=== PATIENT | male | born 2000 | race Caucasian/White ===

== ENCOUNTER 2021-09-14 23:10 | Emergency (ER) | payer BC, OTHER ==
--- NOTE | 2021-09-15 00:06 | ED ---
Psych HPI - General Source: patient, RN notes reviewed Mode of arrival: ambulatory <Alex Russ - Last Filed: 09/15/21 03:17> <Nj Mccrary - Last Filed: 09/15/21 07:46> - General Chief Complaint: Psychiatric Symptoms Stated Complaint: Mental health Time Seen by Provider: 09/14/21 23:47 - History of Present Illness Initial Comments: No headache, no fever or chills, no changes in vision or hearing, no sore throat or difficulty with speech, no neck pain, no chest pain or shortness of breath, no abdominal pain, no nausea or vomiting, no changes in urination or bowel movements, no numbness or tingling, no extremity pain, no skin rashes or lesions. (Alex Russ) 21-year-old male reportedly presented emergency department tonight with chief complaint of depression, alcohol intoxication. Patient stated that he felt suicidal. No plan to harm himself. Denies any illicit drug use. Patient offers no physical complaints. (Nj Mccrary) - Related Data Home Medications Medication Instructions Recorded Confirmed Albuterol Inhaler [Ventolin Hfa 2 puff INHALATION RT-QID PRN 09/15/21 09/15/21 Inhaler] Venlafaxine HCl [Effexor XR] 75 mg PO DAILY 09/15/21 09/15/21 traZODone HCL [Desyrel] 50 mg PO HS PRN 09/15/21 09/15/21 Allergies Allergy/AdvReac Type Severity Reaction Status Date / Time No Known Allergies Allergy Verified 09/15/21 07:31 Review of Systems ROS Other: All systems not noted in ROS Statement are negative. <Alex Russ - Last Filed: 09/15/21 03:17> ROS Other: All systems not noted in ROS Statement are negative. <Nj Mccrary - Last Filed: 09/15/21 07:46> ROS Statement: Those systems with pertinent positive or pertinent negative responses have been documented in the HPI. Past Medical History Past Medical History: No Reported History History of Any Multi-Drug Resistant Organisms: None Reported Past Surgical History: Tonsillectomy Past Psychological History: Depression Smoking Status: Vaper Past Alcohol Use History: Occasional Past Drug Use History: Marijuana <Alex Russ - Last Filed: 09/15/21 03:17> General Exam Limitations: no limitations General appearance: alert, in no apparent distress Head exam: Present: atraumatic, normocephalic, normal inspection Eye exam: Present: normal appearance, PERRL, EOMI. Absent: scleral icterus, conjunctival injection, periorbital swelling ENT exam: Present: normal exam, normal oropharynx, mucous membranes moist, TM's normal bilaterally, normal external ear exam. Absent: mucous membranes dry Neck exam: Present: normal inspection, full ROM. Absent: tenderness, meningismus, lymphadenopathy Respiratory exam: Present: normal lung sounds bilaterally. Absent: respiratory distress, wheezes, rales, rhonchi, stridor, chest wall tenderness, accessory muscle use, decreased breath sounds, prolonged expiratory Cardiovascular Exam: Present: regular rate, normal rhythm, normal heart sounds. Absent: systolic murmur, diastolic murmur, rubs, gallop, clicks GI/Abdominal exam: Present: soft, normal bowel sounds. Absent: distended, tenderness, guarding, rebound, rigid Extremities exam: Present: normal inspection, full ROM, normal capillary refill. Absent: tenderness, pedal edema, joint swelling, calf tenderness Back exam: Present: normal inspection Neurological exam: Present: alert, oriented X3, CN II-XII intact, normal gait. Absent: altered, abnormal gait, motor sensory deficit Psychiatric exam: Present: normal affect, normal mood, other (Patient appears to be appropriate at this time). Absent: depressed, agitated, anxious, flat affect, suicidal ideation Skin exam: Present: warm, dry, intact, normal color. Absent: rash, cyanosis, diaphoretic, erythema, urticaria <Alex Russ - Last Filed: 09/15/21 03:17> - General Exam Comments Initial Comments: Cranial nerves II through XII intact. Patient does not appear to be ill or toxic. (Alex Russ) Course Vital Signs 09/14/21 09/15/21 23:34 06:41 Temperature 98 F Pulse Rate 99 95 Respiratory 16 18 Rate Blood Pressure 127/80 138/97 O2 Sat by Pulse 97 97 Oximetry Medical Decision Making <Alex Russ - Last Filed: 09/15/21 03:17> <Nj Mccrary - Last Filed: 09/15/21 07:46> - Medical Decision Making Patient alcohol level is 0.19. Apparently the patient's friend came back and certified the patient. Patient was reported to the ED attending physician at 3:18 AM. (Alex Russ) Patient was evaluated by EPS upon patient being sober. Patient states is not suicidal. Patient was cleared by EPS, psychiatrist. Patient discharged with safety plan. (Nj Mccrary) Disposition <Alex Russ - Last Filed: 09/15/21 03:17> Is patient prescribed a controlled substance at d/c from ED?: No Time of Disposition: 07:45 <Nj Mccrary - Last Filed: 09/15/21 07:46> Clinical Impression: Alcohol intoxication, Depression Disposition: HOME SELF-CARE Condition: Stable Instructions (If sedation given, give patient instructions): Depression (ED) Additional Instructions: Please return to the Emergency Department if symptoms worsen or any other concerns. Referrals: Isra Pandey MD [Primary Care Provider] - 1-2 days
[2021-09-15 06:42] VITALS: RESP 18
[2021-09-15 08:43] VITALS: BP 130/88; PULSE 89; TEMP 98.1
== END 2021-09-15 08:11 | disposition home or self-care (01) ==
LOC: EC 23:10
DX: F32.A Depression, unspecified (principal); F10.129 Alcohol abuse with intoxication, unspecified; F17.209 Nicotine dependence, unspecified, with unspecified nicotine-induced disorders
CPT/HCPCS: 82075

== ENCOUNTER 2024-08-10 00:06 | Inpatient (IN) | payer BC, MEDICAID ==
[2024-08-10] MEDS: LORazepam 1 MG TAB PO STA ×2 (05:27→07:17)
--- NOTE | 2024-08-10 07:36 | ED ---
General Adult HPI - General Chief complaint: Psychiatric Symptoms Stated complaint: Petition Time Seen by Provider: 08/10/24 00:22 Source: patient Mode of arrival: ambulatory Limitations: no limitations - History of Present Illness Initial comments: Patient is a 24-year-old male with a past medical history of bipolar disorder presenting on petition for self-harming behaviors and suicidal statements. Patient denies suicidal ideation to myself. He states that his dad went on a trip for a week and did not take him and he was feeling bad about himself. Patient states that he does not like himself. He cuts superficially and does not know why. He endorses associated alcohol use. Does not have a plan for suicide. Does have access to knives and his father's gun at home. Has had history of prior suicide attempts. Denies drug use. Does take his medications as prescribed. Denies thoughts of wanting to harm or kill others. Denies auditory or visual hallucinations. Endorses difficulty sleeping. Denies additional complaints. - Related Data Home Medications Medication Instructions Recorded Confirmed Albuterol Inhaler [Ventolin Hfa 2 puff INHALATION RT-QID PRN 09/15/21 09/15/21 Inhaler] Venlafaxine HCl [Effexor XR] 75 mg PO DAILY 09/15/21 09/15/21 traZODone HCL [Desyrel] 50 mg PO HS PRN 09/15/21 09/15/21 Allergies Allergy/AdvReac Type Severity Reaction Status Date / Time No Known Allergies Allergy Verified 08/10/24 00:16 Review of Systems ROS Statement: Those systems with pertinent positive or pertinent negative responses have been documented in the HPI. ROS Other: All systems not noted in ROS Statement are negative. Past Medical History Past Medical History: Asthma History of Any Multi-Drug Resistant Organisms: None Reported Past Surgical History: Tonsillectomy Past Psychological History: Anxiety, Bipolar, Depression Smoking Status: Vaper Past Alcohol Use History: Daily Past Drug Use History: Marijuana General Exam - General Exam Comments Initial Comments: Visual Physical Exam Vital signs reviewed General: Well-appearing, nontoxic, no acute distress. Head: Normocephalic, atraumatic Eyes: PERRLA, EOMI ENT: Airway patent Chest: Nonlabored breathing Skin: No visual rash, normal skin tone, multiple superficial linear abrasions to patient's forearms bilaterally Neuro: Alert and oriented 3 Musculoskeletal: No gross abnormalities Psychiatric: Makes poor eye contact, initially angry affect but then calm and cooperative, denies SI, does not appear to be responding to internal stimuli Limitations: no limitations Course Vital Signs 08/10/24 08/10/24 08/10/24 00:09 05:10 07:25 Temperature 98.3 F Pulse Rate 124 H 110 H Respiratory 18 16 16 Rate Blood Pressure 164/129 159/113 O2 Sat by Pulse 94 L 97 Oximetry Medical Decision Making - Medical Decision Making Was pt. sent in by a medical professional or institution (, PA, LICENSED PESTICIDE APPLICATOR, urgent care, hospital, or group home...) When possible be specific @ -No Did you speak to anyone other than the patient for history (EMS, parent, family, police, friend...)? What history was obtained from this source @ -No Did you review nursing and triage notes (agree or disagree)? Why? @ -I reviewed and agree with nursing and triage notes Were old charts reviewed (outside hosp., previous admission, EMS record, old EKG, old radiological studies, urgent care reports/EKG's, group home records)? Report findings @ -Medical records reviewed-petition for living with patient, filled out by patient's father, it states that patient made suicidal comments, was threatening to harm his sister Differential Diagnosis (chest pain, altered mental status, abdominal pain women, abdominal pain men, vaginal bleeding, weakness, fever, dyspnea, syncope, headache, dizziness, GI bleed, back pain, seizure, CVA, palpatations, mental health, musculoskeletal)? @ -Differential Mental Health Depression, anxiety, bipolar, psychosis, schizophrenia, borderline personality, situational depression, adjustment disorder, behavioral disorder, brain tumor, malingering, substance abuse, encephalopathy, medication reaction, dementia, hypothyroidism, degenerative neurologic disorder, lupus.... This is not meant to be all-inclusive list EKG interpreted by me (3pts min.). @ -As above X-rays interpreted by me (1pt min.). @ -None done CT interpreted by me (1pt min.). @ -None done U/S interpreted by me (1pt. min.). @ -None done What testing was considered but not performed or refused? (CT, X-rays, U/S, labs)? Why? @ -Basic labs were considered however patient has history of bipolar disorder and similar episodes, this is not new issue for the patient What meds were considered but not given or refused? Why? @Antihypertensives were considered however patient is asymptomatic for hypertensive emergency, denying chest pain or shortness of breath, suspect blood pressure may be secondary to anxiety/agitation from having to be in the emergency department and petitioned Did you discuss the management of the patient with other professionals (professionals i.e. Dr., PA, LICENSED PESTICIDE APPLICATOR, lab, RT, psych nurse, social science analyst, chief arson division, teacher, special loan officer, rn case management)? Give summary @Case discussed with EPS RN, Mahad, kindly evaluated pt, recommends inpatient psychiatric admission, pt voluntarily signed himself in Was smoking cessation discussed for >3mins.? @ -No Was critical care preformed (if so, how long)? @ -No Were there social determinants of health that impacted care today? How? (Homelessness, low income, unemployed, alcoholism, drug addiction, transportation, low edu. Level, literacy, decrease access to med. care, half-way, rehab)? @ -No Was there de-escalation of care discussed even if they declined (Discuss DNR or withdrawal of care, Hospice)? @ -No What co-morbidities impacted this encounter? (DM, HTN, Smoking, COPD, CAD, C ancer, CVA, ARF, Chemo, Hep., AIDS, mental health diagnosis, sleep apnea, morbid obesity)? @ -Bipolar does Was patient admitted / discharged? Hospital course, mention meds given and route, prescriptions, significant lab abnormalities, going to OR and other pertinent info. Admission to psychiatric floor-this is a 24-year-old male presenting today for suicidal statements. On my assessment patient is resting comfortably no acute distress. He initially is angry and has an angry affect however ultimately is calm and cooperative. Blood alcohol on breathalyzer is 0.144. Patient medically cleared for EPS at 4:30 AM. He was evaluated by EPS RN and ultimately recommended for inpatient psychiatric hospitalization. Patient voluntarily signed himself in. Admitted to psychiatric floor in stable condition. Undiagnosed new problem with uncertain prognosis? @ -No Drug Therapy requiring intensive monitoring for toxicity (Heparin, Nitro, Insulin, Cardizem)? @ -No Were any procedures done? @ -No Diagnosis/symptom? @ SI, asymptomatic hypertension Acute, or Chronic, or Acute on Chronic? @ -acute Uncomplicated (without systemic symptoms) or Complicated (systemic symptoms)? @ uncomplicated Side effects of treatment? @ -No Exacerbation, Progression, or Severe Exacerbation? @ -No Poses a threat to life or bodily function? How? (Chest pain, [place], [place], pneumonia, PE, COPD, DKA, ARF, appy, cholecystitis, CVA, Diverticulitis, Homicidal, Suicidal, threat to staff... and all critical care pts) @ Potentially, if intent behind suicidal ideation and completed, would result in - Lab Data Lab Results 08/10/24 Range/Units 07:15 SARS-CoV-2 (PCR) Not Detected (Not Detectd) Disposition Clinical Impression: Suicidal ideation, Asymptomatic hypertension Disposition: TRANSFER TO PSYCH HOSP/UNIT Condition: Stable Referrals: Isra Pandey MD [Primary Care Provider] - 1-2 days
[2024-08-10] MEDS: cloNIDine HCL 0.1 MG TAB PO STA (13:32)
[2024-08-10] MEDS: LORazepam 2 MG/ML INJ IM STA (13:33)
[2024-08-10] MEDS ORDERED: LORazepam 2 MG/ML INJ IM PRN (17:03)
[2024-08-10] MEDS ORDERED: LORazepam 1 MG TAB PO PRN ×3 (17:03)
[2024-08-10] MEDS ORDERED: IBUPROFEN 600 MG TAB PO PRN (17:03)
[2024-08-10] MEDS ORDERED: HALOPERIDOL LACTATE 5 MG/ML 1 ML VIAL IM PRN (17:03)
[2024-08-10] MEDS ORDERED: MAGNESIUM HYDROXIDE 2,400 MG/30 ML CUP PO PRN (17:03)
[2024-08-10] MEDS ORDERED: ACETAMINOPHEN TAB 325 MG TAB PO PRN (17:03)
[2024-08-10] MEDS ORDERED: MAG HYDROX/AL HYDROX/SIMETH 355 ML BOTTLE PO PRN (17:03)
[2024-08-10] MEDS ORDERED: ALBUTEROL INHALER 60 PUFF/8 GM INHALER (MHU) INHALATION PRN (17:07)
[2024-08-10] MEDS ORDERED: traZODone HCL 100 MG TAB PO PRN (17:07)
[2024-08-10] MEDS: METOPROLOL TARTRATE 50 MG TAB PO STA (20:41)
[2024-08-10] MEDS: cloNIDine 0.3 MG/24HR PATCH TRANSDERM STA (20:41)
[2024-08-11 00:46] LABS: Basophils # (A) 0.05 10*3/uL (0.00-0.10); Basophils % (A) 0.5 %; Eosinophils # (A) 0.08 10*3/uL (0.04-0.35); Eosinophils % (A) 0.9 %; HCT 50.9 % (39.6-50.0); HGB 18.5 g/dL (13.0-17.0); Lymphocytes # (A) 1.49 10*3/uL (0.90-5.00); Lymphocytes % (A) 16.2 %; MCH 31.2 pg (27.0-32.0); MCHC 36.3 g/dL (32.0-37.0); MCV 85.8 fL (80.0-97.0); Mean Platelet Volume 8.8 fL (9.5-12.2); Monocytes # (A) 0.71 10*3/uL (0.20-1.00); Monocytes % (A) 7.7 %; Neutrophils # (A) 6.88 10*3/uL (1.80-7.70); Neutrophils % (A) 74.6 %; Platelet Count 476 10*3/uL (140-440); RBC 5.93 10*6/uL (4.40-5.60); RDW 12.4 % (11.5-14.5); WBC 9.22 10*3/uL (4.50-10.00)
[2024-08-11] MEDS: LITHIUM CARBONATE 300 MG PO SCH (01:07)
[2024-08-11] MEDS: PATIENT'S OWN (Cariprazine Hcl [Vraylar] 3 MG Capsule) PO SCH (01:07)
[2024-08-11 01:26] LABS: ALT 23 U/L (4-49); AST 25 U/L (17-59); African American GFR (CKD) >90 (>60 ml/min/1.73 sqM); Albumin 4.7 g/dL (3.5-5.0); Alkaline Phosphatase 150 U/L (38-126); Anion Gap 7 mmol/L; Blood Urea Nitrogen 18 mg/dL (9-20); Calcium 10.7 mg/dL (8.4-10.2); Carbon Dioxide 31 mmol/L (22-30); Chloride 97 mmol/L (98-107); Creatine Kinase 92 U/L (55-170); Glucose 105 mg/dL (74-99); Non-African American GFR(CKD) >90 (>60 ml/min/1.73 sqM); Potassium 4.9 mmol/L (3.5-5.1); Sodium 135 mmol/L (137-145); Total Bilirubin 1.4 mg/dL (0.2-1.3); Total Protein 7.3 g/dL (6.3-8.2)
--- NOTE | 2024-08-11 05:50 | P.MDCNMH ---
History of Present Illness H&P Date: 08/11/24 24 year old male with bipolar disorder , asthma coming in for evaluation of self harming behavior , cutting himself superficially as he was feeling upset about his father not involving him in his trip. he denies suicidal ideation. admits to heavy alcohol daily 12 beers per day he was told in the past that he has high blood pressure but was never treated for it . his blood pressure is not high all the time, denies any associated chest pain, headache, changes in vision or hearing denies any focal neuro deficits he denies any fever, chills, cough, sore throat, chest pain , trouble breathing , nausea , vomiting, abd pain , changes in urinary or bowel habits. admits to tobacco smoking , and alcohol , denies any illegal drugs review of systems Pertinent positives as noted in HPI. All other systems were reviewed and are negative on exam Constitutional: No acute distress, conversant, pleasant Eyes: Anicteric sclerae, moist conjunctiva, Pupils equal round reactive to light ENMT: NC/AT Oropharynx clear, no erythema, or exudates Lungs: Clear to auscultation Clear to percussion Normal respiratory effort, no accessory muscle use Cardiovascular: Heart regular in rate and rhythm, No murmurs, gallops, or rubs No peripheral edema Abdominal: Soft Nontender, no guarding, rebound or rigidity Abdomen moving with respiration Normoactive bowel sounds Extremities: No digital cyanosis No clubbing Pedal pulses intact and symmetrical Radial pulses intact and symmetrical No calf tenderness Psychiatric: Alert and oriented to person, place and time Neuro Muscles Strength 5/5 in all 4 extremities Sensation to light touch grossly present throughout Cranial nerves II-XII grossly intact assessment and plan alcohol use disorder and dependance , monitor for alcohol withdrawal benzo per CIWA thiamine daily withdrawal and seizure precautions counseled to quit drinking elevated blood pressure possibly secondary to alcohol withdrawal encouraged to follow up with PCP , to monitor his blood pressure and run tests for secondary causes of hypertension if remains elevated Clonidine 0.2 mg TID PRN for systolic above 180 EKG showing signs of early repolarization of QRS self harming behavior , bipolar disorder management per psych Asthma PRN duoneb for SOB thank you for this consultation Past Medical History Past Medical History: Asthma History of Any Multi-Drug Resistant Organisms: None Reported Past Surgical History: Tonsillectomy Smoking Status: Vaper Medications and Allergies Home Medications Medication Instructions Recorded Confirmed Type Albuterol Inhaler [Ventolin Hfa 2 puff INHALATION RT-QID PRN 09/15/21 08/10/24 History Inhaler] Cariprazine HCl [Vraylar] 3 mg PO HS 08/10/24 08/10/24 History Rodeo Carbonate [Lithobid] 600 mg PO HS 08/10/24 08/10/24 History Venlafaxine HCl ER [Effexor Xr] 150 mg PO DAILY 08/10/24 08/10/24 History traZODone HCL [Desyrel] 100 mg PO HS 08/10/24 08/10/24 History Allergies Allergy/AdvReac Type Severity Reaction Status Date / Time No Known Allergies Allergy Verified 08/10/24 13:59 Physical Exam Vitals: Vital Signs Temp Pulse Pulse Resp BP BP Pulse Ox 08/11/24 02:55 97.9 F 74 18 146/104 97 08/10/24 23:46 92 16 139/82 08/10/24 22:47 83 18 138/106 98 08/10/24 21:25 79 18 150/112 96 08/10/24 19:42 100 16 171/123 98 08/10/24 18:50 97.7 F 132 H 17 147/109 97 08/10/24 16:28 84 17 140/109 96 08/10/24 15:00 80 18 163/110 96 08/10/24 14:37 85 140/107 95 08/10/24 13:30 66 19 181/141 96 08/10/24 12:55 98.4 F 122 H 167/133 96 08/10/24 11:35 98.2 F 134 H 19 180/135 08/10/24 09:42 20 08/10/24 08:30 16 08/10/24 07:25 16 Intake and Output 08/10/24 08/10/24 08/11/24 14:59 22:59 06:59 Other: Weight 60.6 kg Cranial Nerve Examination - Cranial Nerves Cranial Nerve II- Optic: Intact Cranial Nerve III- Oculomotor: Intact Cranial Nerve IV- Trochlear: Intact Cranial Nerve V- Trigeminal: Intact Cranial Nerve - Abducens: Intact Cranial Nerve VII- Facial: Intact Cranial Nerve VIII- Auditory: Intact Cranial Nerve IX- Glossopharyngeal: Intact Cranial Nerve X- Vagus: Intact Cranial Nerve XI- Accessory: Intact Cranial Nerve XII- Hypoglossal: Intact Results CBC & Chem 7: 08/11/24 00:38 08/11/24 00:38 Labs: Abnormal Lab Results - Last 24 Hours (Table) 08/11/24 08/11/24 Range/Units 00:38 00:38 RBC 5.93 H (4.40-5.60) 10*6/uL Hgb 18.5 H (13.0-17.0) g/dL Hct 50.9 H (39.6-50.0) % Plt Count 476 H (140-440) 10*3/uL MPV 8.8 L (9.5-12.2) fL Sodium 135 L (137-145) mmol/L Chloride 97 L (98-107) mmol/L Carbon Dioxide 31 H (22-30) mmol/L Glucose 105 H (74-99) mg/dL Calcium 10.7 H (8.4-10.2) mg/dL Total Bilirubin 1.4 H (0.2-1.3) mg/dL Alkaline Phosphatase 150 H (38-126) U/L
--- NOTE | 2024-08-11 08:29 | P.HP ---
Psychiatric H&P - . H&P Date: 08/11/24 History & Physical: Allergies Allergy/AdvReac Type Severity Reaction Status Date / Time No Known Allergies Allergy Verified 08/10/24 13:59 Vital Signs Temp 97.9 F 08/11/24 02:55 Pulse 74 08/11/24 02:55 Resp 18 08/11/24 02:55 BP 146/104 08/11/24 02:55 Pulse Ox 97 08/11/24 02:55 FiO2 Intake & Output 08/10/24 08/11/24 08/11/24 18:59 06:59 18:59 Weight 60.6 kg Laboratory Last Values WBC 9.22 10*3/uL (4.50-10.00) 08/11/24 00:38 RBC 5.93 10*6/uL (4.40-5.60) H 08/11/24 00:38 Hgb 18.5 g/dL (13.0-17.0) H 08/11/24 00:38 Hct 50.9 % (39.6-50.0) H 08/11/24 00:38 MCV 85.8 fL (80.0-97.0) 08/11/24 00:38 MCH 31.2 pg (27.0-32.0) 08/11/24 00:38 MCHC 36.3 g/dL (32.0-37.0) 08/11/24 00:38 Plt Count 476 10*3/uL (140-440) H 08/11/24 00:38 MPV 8.8 fL (9.5-12.2) L 08/11/24 00:38 Immature Gran % (Auto) 0.1 % 08/11/24 00:38 Neutrophils % 74.6 % 08/11/24 00:38 Lymphocytes % 16.2 % 08/11/24 00:38 Monocytes % 7.7 % 08/11/24 00:38 Eosinophils % 0.9 % 08/11/24 00:38 Basophils % 0.5 % 08/11/24 00:38 Immature Gran # 0.01 10*3/uL (0.00-0.04) 08/11/24 00:38 Neutrophils # 6.88 10*3/uL (1.80-7.70) 08/11/24 00:38 Lymphocytes # 1.49 10*3/uL (0.90-5.00) 08/11/24 00:38 Monocytes # 0.71 10*3/uL (0.20-1.00) 08/11/24 00:38 Eosinophils # 0.08 10*3/uL (0.04-0.35) 08/11/24 00:38 Basophils # 0.05 10*3/uL (0.00-0.10) 04 00:38 Sodium 135 mmol/L (137-145) L 08/11/24 00:38 Potassium 4.9 mmol/L (3.5-5.1) 08/11/24 00:38 Chloride 97 mmol/L (98-107) L 08/11/24 00:38 Carbon Dioxide 31 mmol/L (22-30) H 08/11/24 00:38 Anion Gap 7 mmol/L 08/11/24 00:38 BUN 18 mg/dL (9-20) 08/11/24 00:38 Creatinine 0.81 mg/dL (0.66-1.25) 08/11/24 00:38 Est GFR (CKD-EPI)AfAm >90 (>60 ml/min/1.73 sqM) 08/11/24 00:38 Est GFR (CKD-EPI)NonAf >90 (>60 ml/min/1.73 sqM) 08/11/24 00:38 Glucose 105 mg/dL (74-99) H 08/11/24 00:38 Calcium 10.7 mg/dL (8.4-10.2) H 08/11/24 00:38 Total Bilirubin 1.4 mg/dL (0.2-1.3) H 08/11/24 00:38 AST 25 U/L (17-59) 08/11/24 00:38 ALT 23 U/L (4-49) 08/11/24 00:38 Alkaline Phosphatase 150 U/L (38-126) H 08/11/24 00:38 Creatine Kinase 92 U/L (55-170) 08/11/24 00:38 Troponin I <0.012 ng/mL (0.000-0.034) 08/11/24 00:38 Total Protein 7.3 g/dL (6.3-8.2) 08/11/24 00:38 Albumin 4.7 g/dL (3.5-5.0) 08/11/24 00:38 TSH 1.920 mIU/L (0.465-4.680) 08/11/24 00:38 SARS-CoV-2 (PCR) Not Detected (Not Detectd) 08/10/24 07:15 08/11/24 08:12 Subjective: The patient has struggled with fluctuant depression since high school. More recently he has been treated for mood swing disorder. He does not have episodes of full-blown carmela but there are times where his depression clears on its own and during these, "up" times he has trouble staying on topic talks rapidly does not need to sleep he starts a lot of projects but he usually sticks with him and finishes them he spends money that he had set aside for his savings and later wishes he had not spent however there is no psychotic element and he is perceived as just being socially inappropriate as opposed to being ill. This then goes away and he dives into a depression in which she can get out of bed does not take care of his ADLs and has fleeting suicidal thoughts that come and go. He was treated with Effexor for many years when he thought it worked but more recently the moods have been noticeable so he was treated with Rhinolar he thinks it helped for a while but then he could not afford it he is also started on lithium just a few days ago. Present illness the patient had a girlfriend who left him recently because he just could not stop drinking. He drinks 8-12 beers every night. Then his family went on vacation and did not want to take him along because he would be a "drag". This plunged him into worse depression than the normal fluctuations. He was suicidal but mostly just wanted relief and found that cutting his arms multiple times and watching them bleed gave him relief. He was brought to the emergency room and was still drunk. In the emergency room his blood pressure was bizarrely high and did not respond well. He did have an EKG which suggested a possible septal infarct of unknown age but he did not have elevated cardiac enzymes or any chest pain. The internal medicine doctors in the ER felt that he could be monitored on a normal frequency and that they would be able to manage his medications for us on the psychiatric unit and his blood pressure had come down toward normal by the time of his admission to the unit. (It should be noted that the Effexor tends to contribute to high blood pressure) Substance use: He drinks heavily every day marijuana maybe once a week and no heavier substances. Mental status exam: The patient is cooperative he has decreased psychomotor activity his hair is a mass decreased eye contact and slow responses. He says that he does struggle with motivation and drive and ability to enjoy but feels that his concentration is adequate but that he does over respond emotionally he denies any psychotic symptoms no paranoia no hallucinations. He was oriented to person place time and circumstance and does want to be in the hospital and get help and would like to be referred to a substance use program when he is stable psychiatrically. He says that today he is not suicidal probably because he is in here he could remember 3 of 3 objects after 5 minutes. He can name the last 4 presidents. He could name for the [place] forgetting [facility]. Had no idea where like you are on in [facility]. For similarities of cats and snakes, he said that they have perfect balance, they hiss and they probably see in the dark. He could spell world backward subtract 7 from 93 in for the graphic screen and outside the fence he said you should look on the brighter side. No evidence of responding to voices he appears to be of above average in telligence. Social history the patient is the second of 3 children born to his parents has an older brother and younger sister. His parents when he was 11 years of them remarried dad did stay involved in fact he stays with dad and his younger sister at this point. He used to have friends no longer has friends has chased them all off with his drinking he completed high school no education beyond that although he has a superior IQ. No history no legal history he currently works the late shift at [employer] and starts about 6 and works till 2 in the morning he then sleeps from about 4 AM until 2 in the afternoon but does not have much of a life Diagnosis bipolar 2 Alcohol abuse disorder Plan: I think the lithium is a good idea to stabilize the movements and help with depression but I think that that will not give him energy and drive so we will add in Wellbutrin which does not agitate moods and hopefully will help him have more motivation and drive he takes trazodone at night for sleep at 100 and that seems to work.
[2024-08-11] MEDS ORDERED: VENLAFAXINE HCL ER 150 MG CAP PO SCH (09:00)
[2024-08-11] MEDS: MULTIVITAMINS, THERA 1 EACH TAB PO SCH (09:32)
[2024-08-11] MEDS: buPROPion XL 150 MG TAB.ER.24H PO SCH (09:32)
[2024-08-11] MEDS: THIAMINE 100 MG TAB PO SCH (09:32)
[2024-08-11] MEDS: LITHIUM CARBONATE ER 450 MG TABLET.ER PO SCH (09:32)
[2024-08-11] MEDS: FOLIC ACID 1 MG TAB PO SCH (09:32)
[2024-08-11] MEDS: NICOTINE 14MG/24HR PATCH TRANSDERM SCH (12:03)
[2024-08-11 12:48] LABS: ALT 22 U/L (4-49); AST 28 U/L (17-59); Albumin 4.7 g/dL (3.5-5.0); Alkaline Phosphatase 158 U/L (38-126); Bilirubin, Delta 0.2 mg/dL (0.0-0.2); Bilirubin,Unconjugated 1.1 mg/dL (0.0-1.1); Total Bilirubin 1.3 mg/dL (0.2-1.3); Total Protein 7.2 g/dL (6.3-8.2)
[2024-08-11] MEDS: cloNIDine HCL 0.2 MG TAB PO PRN (13:59)
[2024-08-11] MEDS: haloperidoL 5 MG TAB PO PRN (14:00)
[2024-08-11] MEDS: traZODone HCL 100 MG TAB PO SCH (22:01)
[2024-08-12 09:34] LABS: Chol/HDL Ratio 2.77 Ratio; LDL Cholesterol,Calculated 108.5 mg/dL (0.0-131.0)
--- NOTE | 2024-08-12 12:26 | P.PN ---
Progress Note - Text Progress Note Date: 08/12/24 Interval History: Patient was seen in bed and was directable and agreeable to speak with handbook writer in the office. He states ultimately being here due to his girlfriend of 5 months breaking up with him and that his family going on vacation leaving him home alone. He states during this time. He was drinking more frequently, roughly drinking 24 pack of beer every other day however he does deny any withdrawal symptoms at this time. He states being on Vraylar for the past year however lithium being added within the past month by his [facility]. He does mention feeling better with the change in his medications however does report some sleep difficulties overnight. He states he will follow-up with [facility] for outpatient substance support. At this time patient denies any suicidal or homicidal ideations, intent or plan. Patient denies any auditory, visual hallucinations and denies any paranoia or delusions. Patient denies any side effects from the medications and has been compliant with meds. Mental Status Exam: General Appearance: Patient appears to be stated age is alert, directable, and c ooperative. He has disheveled appearance Behavior: Patient is calmly seated without any agitated behavior. Speech: Patient's speech is fluent and nonpressured. Mood/Affect: Mood is improving mildly, affect is congruent and constricted. Suicidality/Homicidality: Patient denies having any suicidal or homicidal ideation intent or plan. Perceptions: Patient denies any visual hallucinations and denies any auditory hallucinations Though content/process: There is no evidence of any delusional thought content and thought process is linear and logical. Memory and concentration: AOX3, grossly intact for the purposes of this session Judgment and insight: Improving mildly Assessment Bipolar 2 disorder Alcohol use disorder Nicotine dependence Plan: -Patient continues to meet criteria for inpatient psychiatric admission for symptom stabilization and safety. Patient has signed adult voluntary form and medication consent and was placed in patient's chart. -Medications: Change lithium to ER 900 mg at bedtime for mood stabilization, continue Wellbutrin XL 150 mg daily for depression, Vraylar 3 mg at bedtime for bipolar disorder -When necessary Ativan and Haldol for agitation/aggression. -Labs: Reviewed, A1c WNL, lipid panel mildly elevated -NRT - nicotine patch -CIWA protocol with Ativan PRN for ETOH withdrawal. -SW on board for discharge planning. Encouraged the patient to participate in milieu. Anticipate discharge back home with family on Monday after lithium level
[2024-08-12] MEDS: LITHIUM CARBONATE ER 450 MG TABLET.ER PO SCH (20:13)
--- NOTE | 2024-08-13 12:20 | P.PN ---
Progress Note - Text Progress Note Date: 08/13/24 Interval History: Patient was seen in bed and was directable and agreeable to speak with resume writer in the office. He states that his dad is bringing up his Vraylar today. He expressed no concerns, denying any tremors. He rates his depression low today and states he slept better last night. Information education sheet was provided to patient regarding lithium and all questions addressed as this is a newer medication for patient. At this time patient denies any suicidal or homicidal ideations, intent or plan. Patient denies any auditory, visual hallucinations and denies any paranoia or delusions. Patient denies any side effects from the medications and has been compliant with meds. Mental Status Exam: General Appearance: Patient appears to be stated age is alert, directable, and cooperative. Behavior: Patient is calmly seated without any agitated behavior. Speech: Patient's speech is fluent and nonpressured. Mood/Affect: Mood is improving mildly, affect is congruent and reactive. Suicidality/Homicidality: Patient denies having any suicidal or homicidal ideation intent or plan. Perceptions: Patient denies any visual hallucinations and denies any auditory hallucinations Though content/process: There is no evidence of any delusional thought content and thought process is linear and goal-directed. Memory and concentration: AOX3, grossly intact for the purposes of this session Judgment and insight: Improving mildly Assessment Bipolar 2 disorder Alcohol use disorder Nicotine dependence Plan: -Patient continues to meet criteria for inpatient psychiatric admission for symptom stabilization and safety. Patient has signed adult voluntary form and medication consent and was placed in patient's chart. -Medications: Continue lithium ER 900 mg at bedtime for mood stabilization, Wellbutrin XL 150 mg daily for depression, Vraylar 3 mg at bedtime for bipolar disorder -When necessary Ativan and Haldol for agitation/aggression. -Labs: Reviewed, A1c WNL, lipid panel mildly elevated -NRT - nicotine patch -CIWA protocol with Ativan PRN for ETOH withdrawal. -SW on board for discharge planning. Encouraged the patient to participate in milieu. Anticipate discharge back home with family tomorrow, will obtain lithium level prior to discharge
[2024-08-13] MEDS: PATIENT'S OWN (Cariprazine Hcl [Vraylar] 3 MG Capsule) PO SCH (20:23)
[2024-08-14 08:27] VITALS: BP 142/87; PULSE 66; RESP 20; TEMP 97.1
--- NOTE | 2024-08-14 14:26 | P.DS ---
Providers Date of admission: 08/10/24 16:46 Expected date of discharge: 08/14/24 Attending physician: Mavis Tran MD Consults: 08/10/24 17:03 Consult Physician Routine Consulting Provider: Daxa Vu Consult Reason/Comments: History and Physical, New Admission Do you want consulting provider notified?: Yes Primary care physician: Shad Pandey - Discharge Diagnosis(es) (1) Bipolar 2 disorder Current Visit: Yes Status: Acute Priority: High (2) Alcohol use disorder Current Visit: Yes Status: Acute Priority: High (3) Nicotine dependence Current Visit: Yes Status: Acute Priority: Low Hospital Course: Admission HPI: Admission note was completed by Dr. Mobley "The patient has struggled with fluctuant depression since high school. More recently he has been treated for mood swing disorder. He does not have episodes of full-blown carmela but there are times where his depression clears on its own and during these, "up" times he has trouble staying on topic talks rapidly does not need to sleep he starts a lot of projects but he usually sticks with him and finishes them he spends money that he had set aside for his savings and later wishes he had not spent however there is no psychotic element and he is perceived as just being socially inappropriate as opposed to being ill. This then goes away and he dives into a depression in which she can get out of bed does not take care of his ADLs and has fleeting suicidal thoughts that come and go. He was treated with Effexor for many years when he thought it worked but more recently the moods have been noticeable so he was treated with Rhinolar he thinks it helped for a while but then he could not afford it he is also started on lithium just a few days ago. Present illness the patient had a girlfriend who left him recently because he just could not stop drinking. He drinks 8-12 beers every night. Then his family went on vacation and did not want to take him along because he would be a "drag". This plunged him into worse depression than the normal fluctuations. He was suicidal but mostly just wanted relief and found that cutting his arms multiple times and watching them bleed gave him relief. He was brought to the emergency room and was still drunk. In the emergency room his blood pressure was bizarrely high and did not respond well. He did have an EKG which suggested a possible septal infarct of unknown age but he did not have elevated cardiac enzymes or any chest pain. The internal medicine doctors in the ER felt that he could be monitored on a normal frequency and that they would be able to manage his medications for us on the psychiatric unit and his blood pressure had come down toward normal by the time of his admission to the unit. (It should be noted that the Effexor tends to contribute to high blood pressure)" Hospital course: Upon admission to the unit patient was directable and agreeable to commence treatment and signed adult voluntary form.. Patient got along well with other patients on the unit and followed unit protocol. Patient was compliant with the medications and denied any side effects throughout hospital course. Patient was started on Wellbutrin XL 150 mg daily for depression with Effexor being discontinued due to elevated blood pressure, lithium changed to Lithobid and increased in 100 mg at bedtime for mood stabilization, Vraylar continued at 3 mg at bedtime for bipolar disorder. [place] level returned at 1.0. Patient spoke of his stressors and engaged in therapy both group and individual. Patient was also seen by medical team for history and physical exam. Throughout the course of the hospitalization patient gradually improved with regards to mood, anxiety, sleep and returned back to their baseline level of functioning. On the day of discharge patient denied any suicidal or homicidal ideations intent or plan denied any auditory or visual hallucinations. The patient denied any access to guns or weapons. Patient denied any paranoia and did not endorse any delusions. Patient does have a significant history of substance abuse and was counseled on abstaining from all substances including alcohol and marijuana. Patient elected to do outpatient substance use treatment program through their outpatient provider. Patient was also counseled on the medications and need for regular compliance and was encouraged to follow-up with their outpatient appointment for mental health and also for primary care. Prior to discharge a family meeting will be arranged by secondary social studies teacher to answer any questions and ensure safety upon discharge including making sure that guns/weapons are either removed from the home or locked away. Patient to be discharged back home with family and will follow-up with [facility]. Mental status exam: General Appearance: Patient appears to be stated age is alert, pleasant, and cooperative. Patient is in no acute distress and has good hygiene and grooming Behavior: Patient is calmly seated without any agitated behavior. Speech: Patient's speech is fluent and nonpressured. Mood/Affect: Patient reports their mood is "better", affect is congruent and euthymic. Suicidality/Homicidality: Patient denies having any suicidal or homicidal ideation intent or plan. Perceptions: Patient denies any auditory or visual hallucinations. Though content/process: There is no evidence of any delusional thought content and thought process is linear and goal-directed. Memory and concentration: AOX3, grossly intact for the purposes of this session. Can spell "WORLD" backwards correctly. Judgment and insight: fair Impression: Bipolar 2 disorder Alcohol use disorder Nicotine dependence Plan: -Continue with discharge today as patient has improved and stabilized psychiatrically and is not currently an imminent threat to themself and/or others. Patient will remain at chronically elevated risk for harm to self and/or others due to their impulsivity and substance abuse. -Continue medications: Lithobid 900 mg at bedtime, Wellbutrin XL 150 mg daily, Vraylar 3 mg at bedtime -Patient was counseled on the need for medication compliance and appropriate follow-up at mental health and also primary care for medical issues. Patient verbalized understanding and agreed. -Social work to help coordinate patients discharge today arrange for and conduct family meeting to ensure safety upon discharge and answer any questions/concerns. also to ensure safe home environment that guns/weapons are either removed from the home or locked away. Social work also to arrange for patients follow up appointments with [facility] for psychiatric care along with follow up with primary care provider. -Patient counseled on abstaining from recreational drugs and marijuana and alcohol. Was informed/educated on the adverse effects on their physical and mental health. Patient verbally agreed and understood. Patient did accept outpatient substance use treatment through , declining inpatient rehab at this time -Patient was instructed to return to the hospital or seek immediate medical care if their psychiatric or medical symptoms do worsen or reoccur. Abnormal Labs 08/11/24 08/11/24 08/11/24 00:38 00:38 00:38 RBC 5.93 H Hgb 18.5 H Hct 50.9 H Plt Count 476 H MPV 8.8 L Sodium 135 L Chloride 97 L Carbon Dioxide 31 H Glucose 105 H Calcium 10.7 H Total Bilirubin 1.4 H Alkaline Phosphatase 158 H 150 H Triglycerides 198.00 H Cholesterol 232.00 H HDL Cholesterol 83.90 H Allergies Allergy/AdvReac Type Severity Reaction Status Date / Time No Known Allergies Allergy Verified 08/10/24 13:59 Vital Signs Temp 97.1 F L 08/14/24 08:26 Pulse 66 08/14/24 08:26 Resp 20 08/14/24 08:26 BP 142/87 08/14/24 08:26 Pulse Ox 100 08/14/24 08:26 FiO2 Patient Condition at Discharge: Stable Plan - Discharge Summary Discharge Rx Participant: Yes New Discharge Prescriptions: New traZODone HCL [Desyrel] 100 mg PO HS tab Folic Acid 1 mg PO DAILY 30 Days #30 tab Multivitamins, Thera [Multivitamin (formulary)] 1 each PO DAILY 30 Days #30 tab Thiamine [Vitamin B-1] 100 mg PO DAILY 30 Days #30 tab Nicotine 14Mg/24Hr Patch [Habitrol] 1 patch TRANSDERM DAILY patch [place] Carbonate ER [Lithobid] 900 mg PO HS 30 Days #60 tab buPROPion XL [Wellbutrin XL] 150 mg PO DAILY 30 Days #30 tab Continue Cariprazine HCl [Vraylar] 3 mg PO HS traZODone HCL [Desyrel] 100 mg PO HS 30 Days #30 tab Discontinued Venlafaxine HCl ER [Effexor Xr] 150 mg PO DAILY [place] Carbonate [Lithobid] 600 mg PO HS Albuterol Inhaler [Ventolin Hfa Inhaler] 2 puff INHALATION RT-QID PRN PRN Reason: Shortness Of Breath Discharge Medication List Cariprazine HCl [Vraylar] 3 mg PO HS 08/10/24 [History] Folic Acid 1 mg PO DAILY 30 Days #30 tab 08/14/24 [Rx] [place] Carbonate ER [Lithobid] 900 mg PO HS 30 Days #60 tab 08/14/24 [Rx] Multivitamins, Thera [Multivitamin (formulary)] 1 each PO DAILY 30 Days #30 tab 08/14/24 [Rx] Nicotine 14Mg/24Hr Patch [Habitrol] 1 patch TRANSDERM DAILY patch 08/14/24 [Rx] Thiamine [Vitamin B-1] 100 mg PO DAILY 30 Days #30 tab 08/14/24 [Rx] buPROPion XL [Wellbutrin XL] 150 mg PO DAILY 30 Days #30 tab 08/14/24 [Rx] traZODone HCL [Desyrel] 100 mg PO HS tab 08/14/24 [Rx] traZODone HCL [Desyrel] 100 mg PO HS 30 Days #30 tab 08/14/24 [Rx] Follow up Appointment(s)/Referral(s): Counseling, [place] [Other] - 1 Week ([address] [facility] [Outside] - 08/15/24 1:00 pm (08/15 @ 13:00 with Gilmer Fox 08/16 @ 14:30 with Idalia Rodriguez ) Isra Pandey MD [Primary Care Provider] - 1-2 days Patient Instructions/Handouts: Seizure/Epilepsy Discharge Instructions & Follow-Up, Bipolar Disorder (DC), Abuse of Alcohol (DC) Activity/Diet/Wound Care/Special Instructions: [facility] Discharge Info Avoid the use of street drugs and alcohol. Take all medications as prescribed. When you are in need of refills on your medications, please contact your outpatient medical provider and/or outpatient psychiatrist. Please go to your scheduled outpatient appointments for aftercare treatment. If symptoms return or become worse, call the crisis line at or and/or visit the nearest emergency room for assistance. National Suicide and Crisis Lifeline - call or text 483 Discharge/Stand Alone Forms: LIDA Vigil Discharge Disposition: HOME SELF-CARE
== END 2024-08-14 14:15 | disposition home or self-care (01) | DRG 885 ==
LOC: EC 00:06 → 3MHU 16:46
PROVIDERS: ADMIT Psychiatry & Neurology Psychiatry; ATTEND Psychiatry & Neurology Psychiatry
DX: F31.81 Bipolar II disorder (principal); R45.851 Suicidal ideations; F10.239 Alcohol dependence with withdrawal, unspecified; J45.909 Unspecified asthma, uncomplicated; I10 Essential (primary) hypertension; F17.290 Nicotine dependence, other tobacco product, uncomplicated; G47.9 Sleep disorder, unspecified; F41.9 Anxiety disorder, unspecified; Z91.51 Personal history of suicidal behavior; Z79.899 Other long term (current) drug therapy; Z71.51 Drug abuse counseling and surveillance of drug abuser; Z71.41 Alcohol abuse counseling and surveillance of alcoholic
CPT/HCPCS: 80053; 80061; 80178; 82075; 82248; 82550; 83036; 84443; 84484; 85025; 87635; 93005; 96372; 99285